=== PATIENT | male | born 1970 | race Caucasian/White ===

== ENCOUNTER 2022-05-14 22:57 | Emergency (ER) | payer OTHER ==
[~2022-05-14 22:57] MED LIST changes: -ENDOCET 5-3251 EACH PO
[2022-05-15] MEDS ORDERED: ENDOCET 5-3251 EACH PO (01:24)
== END 2022-05-15 02:32 | disposition home or self-care (01) ==
LOC: ER1 22:57
DX: G89.18 Other acute postprocedural pain (principal); M25.511 Pain in right shoulder
CPT/HCPCS: 96372; 99283; J1170; J1885; J2270

== ENCOUNTER → 2022-05-14 | Day surgery (SDC) | payer OTHER ==
[~2022-05-14] VITALS: Ht 172.7 cm; Wt 86.2 kg
[~2022-05-14] MED LIST: ENDOCET 5-3251 EACH PO; HYDROCODON-ACE1 EAC4 PO; ROXICODONE5 MG PO
[2022-05-14 09:27] LABS: HEMOGLOBIN 16.1 gm/dl (14.0-17.5); RED BLOOD COUNT 4.96 M/UL (4.20-5.50); WHITE BLOOD COUNT 9.1 K/UL (4.5-11.0)
[2022-05-14 10:18] LABS: BUN/CREATININE RATIO 16 (0-10)
== END | disposition home or self-care (01) ==
LOC: OR 08:52
PROVIDERS: Orthopaedic Surgery
DX: S42.201A Unspecified fracture of upper end of right humerus, initial encounter for closed fracture (principal); G89.18 Other acute postprocedural pain; Z88.0 Allergy status to penicillin; V20.4XXA Motorcycle driver injured in collision with pedestrian or animal in traffic accident, initial encounter; Z79.899 Other long term (current) drug therapy
CPT/HCPCS: 36415; 73060; 76000; 80048; 85025; C1713; J1100; J1170; J2001; J2250; J2405; J2704; J2795; J3010

== ENCOUNTER → 2022-06-09 | Outpatient (CLI) | payer OTHER ==
[~2022-06-09] MED LIST changes: +ENDOCET 5-3251 EACH PO
== END ==
LOC: KOH-I 14:30
DX: M23.92 Unspecified internal derangement of left knee (principal); S70.12XA Contusion of left thigh, initial encounter; S70.11XA Contusion of right thigh, initial encounter; S83.512A Sprain of anterior cruciate ligament of left knee, initial encounter; S83.522A Sprain of posterior cruciate ligament of left knee, initial encounter
CPT/HCPCS: 73721